=== PATIENT | male | born 1975 | race Caucasian/White ===

== ENCOUNTER 2023-12-07 19:59 | Emergency (ER) | payer OTHER ==
[~2023-12-07] VITALS: Ht 172.7 cm; Wt 81.6 kg
[2023-12-07 20:14] VITALS: BP 134/75; PULSE 88; RESP 16; TEMP 98; O2SAT 98
== END 2023-12-07 23:53 | disposition left against medical advice (07) ==
LOC: MED 19:59
DX: M79.10 Myalgia, unspecified site (principal); I10 Essential (primary) hypertension; Z53.21 Procedure and treatment not carried out due to patient leaving prior to being seen by health care provider; V87.8XXA Person injured in other specified noncollision transport accidents involving motor vehicle (traffic), initial encounter; Y93.89 Activity, other specified; Y92.89 Other specified places as the place of occurrence of the external cause; Y99.8 Other external cause status